=== PATIENT | male | born 1945 | race Caucasian/White ===

== ENCOUNTER 2017-03-10 18:55 | Emergency (ER) | payer MEDICARE, OTHER ==
[~2017-03-10] VITALS: Ht 188 cm; Wt 111.1 kg
[2017-03-10] MEDS ORDERED: GLUCOPHAGE500 MG PO (19:10)
[2017-03-10] MEDS ORDERED: METOPROLOL TART50 MG PO (19:11)
[2017-03-10] MEDS ORDERED: LISINOPRIL-HCT1 EACH PO (19:11)
[2017-03-10] MEDS ORDERED: GLIPIZIDE5 MG PO (19:11)
[2017-03-10] MEDS ORDERED: DOXYCYCLINE HY100 MG PO (20:39)
== END 2017-03-10 20:57 | disposition home or self-care (01) ==
LOC: ED 18:55
DX: S60.222A Contusion of left hand, initial encounter (principal); L08.9 Local infection of the skin and subcutaneous tissue, unspecified; E11.9 Type 2 diabetes mellitus without complications; I10 Essential (primary) hypertension; Z79.84 Long term (current) use of oral hypoglycemic drugs; Z79.899 Other long term (current) drug therapy; W22.8XXA Striking against or struck by other objects, initial encounter
CPT/HCPCS: 73080; 73130; 99283

== ENCOUNTER 2023-01-13 07:06 | Emergency (ER) | payer MEDICARE, OTHER ==
[~2023-01-13] VITALS: Ht 188 cm; Wt 106.1 kg
[~2023-01-13 07:06] MED LIST: DOXYCYCLINE HY100 MG PO; GLIPIZIDE5 MG PO; GLUCOPHAGE500 MG PO; LISINOPRIL-HCT1 EACH PO; METOPROLOL TART50 MG PO
[2023-01-13] MEDS ORDERED: LEVEMIR100 UNIT/1 SUB-Q (07:17)
[2023-01-13 07:38] LABS: BASOPHILS 0.4 % (0-2); HEMATOCRIT 41.7 % (35.0-50.0); HEMOGLOBIN 13.7 g/dL (12.0-18.0); MCHC 32.8 g/dl (30-36); MCV 82.5 fl (81-99); MONOCYTES 5.8 % (0-12); NEUTROPHILS 77.8 % (39-80); PLATELET COUNT 395 K/uL (140-440); RBC 5.05 M/ul (4.3-5.7); RDW 12.9 (10.5-15.0)
[2023-01-13 07:43] LABS: ALBUMIN 3.3 g/dL (3.4-5.0); ALBUMIN/GLOBULIN RATIO 0.65 (1.1-2.4); ANION GAP 13.1 (7-21); BILIRUBIN, TOTAL 0.5 ng/dL (0.2-1.0); BUN/CREATININE RATIO 20.8 (6.0-28.6); CALCIUM 9.6 mg/dL (8.5-10.1); CREATININE, SERUM 1.25 mg/dL (0.70-1.30); POTASSIUM 4.1 mmol/L (3.5-5.1); PROTEIN, TOTAL 8.4 g/dL (6.4-8.2)
[2023-01-13] MEDS ORDERED: ONDANSETRON ODT8 MG PO (08:44)
[2023-01-13] MEDS ORDERED: HYDROCODON-ACE1 EA11 PO (08:44)
[2023-01-13] MEDS ORDERED: FLOMAX0.4 MG PO (08:44)
[2023-01-13 09:31] LABS: BILIRUBIN, URINE NEGATIVE (negative); BLOOD/HGB, URINE MODERATE (Negative); KETONE, URINE TRACE (Negative); LEUK ESTERASE, URINE SMALL (negative); NITRITE, URINE NEGATIVE (negative); PH, URINE 5.5 (5-7)
[2023-01-13 09:45] LABS: EPITHELIAL CELLS, URINE 0 /lpf (0-1+); WHITE BLOOD CELLS, URINE 21-40 /HPF (0-5)
[2023-01-13 09:46] LABS: BACTERIA, URINE 1+ /hpf (negative); CASTS, URINE NONE SEEN \\lpf; COLLECTION TYPE, URINE CLEAN CATCH; CRYSTALS, URINE NONE SEEN (0-1+); REFLEX CULTURE, URINE Yes (No)
[2023-01-13] MEDS ORDERED: CEFDINIR300 MG PO (09:54)
[2023-01-13 10:50] VITALS: BP 160/76
[2023-01-14] MEDS ORDERED: METFORMIN HCL500 MG PO (17:54)
[2023-01-15] MEDS ORDERED: PRILOSEC OTC20 MG PO (08:29)
[2023-01-15] MEDS ORDERED: ADULT LOW DOSE81 MG PO (08:29)
== END 2023-01-13 10:50 | disposition home or self-care (01) ==
LOC: ED 07:06
PROVIDERS: Emergency Medicine
DX: N13.2 Hydronephrosis with renal and ureteral calculous obstruction (principal); N28.89 Other specified disorders of kidney and ureter; I10 Essential (primary) hypertension; E11.9 Type 2 diabetes mellitus without complications; Z79.84 Long term (current) use of oral hypoglycemic drugs; Z79.4 Long term (current) use of insulin
CPT/HCPCS: 36415; 51798; 74177; 80053; 81001; 83690; 85025; 87088; 99284-25; A9270; J0696; J1170; J1885; J2405; J7030; Q9967

== ENCOUNTER 2023-01-20 06:50 | Day surgery (SDC) | payer MEDICARE, OTHER ==
[~2023-01-20] VITALS: Ht 188 cm; Wt 108.0 kg
[~2023-01-20 06:50] MED LIST changes: +ADULT LOW DOSE81 MG PO; +CEFDINIR300 MG PO; +FLOMAX0.4 MG PO; +HYDROCODON-ACE1 EA11 PO; +LEVEMIR100 UNIT/1 SUB-Q; +METFORMIN HCL500 MG PO; +ONDANSETRON ODT8 MG PO; +PRILOSEC OTC20 MG PO
--- NOTE | 2023-01-20 07:15 | NUR ---
PT IN BED. IN CHAIR AT BEDSIDE. BOTH IN GOOD SPIRITS. I EXERCISED MINISTRY OF PRESENCE TALKED OF RECENT EXPERIENCES AND HOPES FOR RELEIF FROM DISCOMFORT. CONSENTED TO PRAYER. PRAYED FOR SUCCESSFUL PROCEDURES AND ONGOING HEALING.
[2023-01-20 07:29] VITALS: BP 164/69
[2023-01-20] MEDS ORDERED: SIMVASTATIN40 MG PO (07:38)
--- NOTE | 2023-01-20 11:30 | NUR ---
PT ARRIVES TO UNIT FROM PACU VIA STRETCHER. REPORT RECIEVED FROM AD RN, FAMILY IS AT BEDSIDE AT THIS TIME. PT IS A&O X4 AND REPORTS PAIN 1/10 AT THIS TIME. SITE HAS SMALL AMOUNT OF OLD SS DRAINAGE, STENT STRING IN PLACE W/TAPE AT THIS TIME, PT VERBALIZES UNDERSTANDING ABOUT IMPORTANCE OF STRING IN PLACE. PT IS SHIVERING AT THIS TIME, BEAR HUGGER IN PLACE, PT STATES THIS IS COMFORTABLE. APPLESAUCE, APPLEJUICE, AND CRACKERS PROVIDED AT THIS TIME, PT TOLERATING WITHOUT DIFFICULTY SWALLOWING. CALL LIGHT WITHIN REACH, NO FURTHER NEEDS AT THIS TIME.
[2023-01-20 11:32] VITALS: BP 175/85
--- NOTE | 2023-01-20 11:41 | NUR ---
01/20/23 1141 Chacha Gan 1055 PT ARRIVED TO PACU, RESP EVEN AND UNLABORED AND PT SHAKING. PT EYES CLOSED AND PT SLIGHTLY REACTIVE TO TACTILE STIMULI. PT UNABLE TO FOLLOW COMMANDS. 1058 PT OPENED HIS EYES AND RN REORIENTING PT TO PACU. PT NODS HEAD "NO" TO PAIN AND NAUSEA. 1100 O2 REMOVED AND RN CONTINUES TO REASSURE PT AND REORIENT HIM. SHAKING CONTINUES. PT DENIES BEING COLD, PT ASKED PRE OP TO REMAIN COLD DUE TO BEING HOT CAUSING NAUSEA. 1102 CBG 86, EDUCATION GIVEN ON CBG. PT REQUESTS WATER AND TAKING SMALL SIPS AT THIS TIME. 1115 PT REQUESTS TO INCREASED HOB, HOB INCREASED. PT REPORTS "BEING LIGHTHEADED" BUT REPORTS IT GETTING BETTER WITH HOB INCREASED. PT REPORTS PAIN 2-3/10 AND TOLERABLE AT THIS TIME. 1130 PT RETURNED TO DS WITH FAMILY AT BEDSIDE, REPORT GIVEN AND ALL QUESTIONS ANSWERED. EDUCATION GIVEN ON STENT IN PLACE AND VOIDING.
--- NOTE | 2023-01-20 12:16 | NUR ---
1210-PATIENT STATES THE URGE TO URINATE. PATIENT STANDING UP USING A BEDSIDE. DENIES BEING DIZZY OR LIGHTHEADED. 1216-PATIETN UNABLE TO URINATE AT THIS TIME. PATIENT BACK TO BED AND TAKING SIPS OF WATER.
[2023-01-20 12:30] VITALS: BP 179/71
--- NOTE | 2023-01-20 12:38 | NUR ---
IN PT ROOM FOR ASSESSMENT AND VS. NO ACUTE CHANGES FROM PREVIOUS ASSESSMENT, STENT THREAD IN PLACE TAPED TO SKIN AT THIS TIME, SM AMOUNT OF SS DRAINAGE. PT REPORTS NO PAIN OR NAUSEA AT THIS TIME AND HAS TOLERATED ALL ORAL INTAKE WITHOUT DIFFICULTY. ICE WATER PROVIDED. PT STATES VERBAL UNDERSTANDING TO REQUIREMENT FOR DISCHARGE OF URINATING. CALL LIGHT WITHIN REACH, FAMILY AT BEDSIDE, NO FURTHER NEEDS AT THIS TIME.
--- NOTE | 2023-01-20 13:11 | NUR ---
IN PT ROOM FOR PT REPORT OF URGE TO VOID. PT TO BATHROOM FOR REPORTED LOOSE BM AND 50 ML OF OUTPUT OF PINK (CLOT FREE) URINE. PT REPORTS PAIN 0.5/10 POST BM/URINE VOID. PT NOW RESTING BACK IN BED, ICE WATER PROVIDED. PT REPORTS NO NAUSEA OR FURTHER NEEDS AT THIS TIME. SITE HAS SMALL AMOUNT OF SS DRAINAGE. CALL LIGHT WITHIN REACH, FAMILY AT BEDSIDE.
[2023-01-20 14:27] VITALS: BP 144/70
--- NOTE | 2023-01-20 14:40 | NUR ---
IN PT ROOM FOR URGE TO VOID AND NEED FOR BM. PT TO BATHROOM, STANDBY ASSIST BY THIS RN. 120 ML RED TINGED/CLEAR OUTPUT. PT STATES LOOSE BM WELL. PT NOW BACK TO ROOM AND REQUESTS THIS RN UPDATE MD TO ENSURE NECESSITY OF VILLATORO CATH AFTER 120 ML URINE VOID. CALLED MD IN OR ROOM AND UPDATED ON PT URINE OUTPUT, MD REQUESTS ADDITIONAL BLADDER SCAN AT THIS TIME. BLADDER SCAN VOLUME OF 837 ML. PT STATES SLIGHT PRESSURE IS FELT AT BLADDER SITE, BUT PAIN IS 3/10 AND TOLERABLE. CALL LIGHT WITHIN REACH, KIRTI PERALTA TO BE UPDATED.
--- NOTE | 2023-01-20 15:00 | NUR ---
KIRTI PERALTA UPDATED OF BLADDER SCAN VOLUME (SEE PREVIOUS NOTE). KIRTI PERALTA VERBAL ORDER FOR 18 FR CATHETER TO STILL BE PLACED. THIS RN AND OLIVIA RN IN ROOM WITH PT, PT , AND PT DAUGHTER EDUCATING ABOUT IMPORTANCE OF CATHETER D/T URINARY OUTPUT, PT STATES VERBAL UNDERSTANDING AT THIS TIME.
--- NOTE | 2023-01-20 15:15 | NUR ---
THIS RN AND OLIVIA BUCKLE ATTACHING MACHINE OPERATOR IN ROOM FOR CATH PLACEMENT AT THIS TIME PER MD ORDER. STERILITY MAINTAINED, UROJET USED FOR PT COMFORT. PT TOLERATED WELL. MODERATE SIZED CLOT IN CATHETER W/IMMEDIATE URINE RETURN, KIRTI PERALTA IN ROOM AT THIS TIME. TOTAL URINE OUTPUT OF 900 ML OF ORANGE/PINK URINE AFTER INSERTION W/MODERATE SIZED CLOT IN BAG. PT STATES PAIN IS 1/10 AND NO NEED FOR PRN PAIN MED AT THIS TIME, PT STATES NO NAUSEA.
[2023-01-20 15:34] VITALS: BP 157/71
--- NOTE | 2023-01-20 15:35 | NUR ---
THIS RN IN ROOM FOR VS AND ASSESSMENT. NO ACUTE CHANGES FROM PREVIOUS ASSESSMENT. STENT REMAINS IN PLACE W/SMALL AMOUNT OF SS DRAINAGE AT THIS TIME. VILLATORO CATH SECURED W/STAT LOCK TO LFT THIGH AND DRAINING ORANGE/CLEAR URINE TO GRAVITY. PT REPORTS TOLERABLE PAIN LEVEL AT THIS TIME AND STATES NO NEED FOR PRN PAIN MED, PT REPORTS NO NAUSEA. THIS RN AND PT ASSISTS PT WITH GETTING DRESSED.
--- NOTE | 2023-01-20 15:45 | NUR ---
PT EXPRESSES NEED TO VOID, TO BATHROOM FOR 75 ML OUTPUT OF YELLOW/ORANGE URINE. PT REPORTS NO FURTHER NEEDS AT THIS TIME, CALL LIGHT WITHIN REACH. PT BLADDER SCAN OF 807 ML AT THIS TIME. MD NOTIFIED OF LOW URINE OUTPUT AND BLADDER SCAN VOLUME, VERBAL ORDERS FOR 18 FR VILLATORO TO STAY IN PLACE FOR 1 DAY POST-OP AND BE REMOVED BY PT/PT FAMILY. THIS RN IN ROOM FOR EDUCATION ON VILLATORO CATHETER, PT AND PT STATE VERBAL UNDERSTANDING.
--- NOTE | 2023-01-20 15:45 | NUR ---
THIS RN IN ROOM FOR DISCHARGE EDUCATION. PT AND STATE VERBAL UNDERSTANDING REGARDING STENT STRING AND CARE OF VILLATORO CATHETER, PT AND PT STATE NO FURTHER QUESTIONS AT THIS TIME. IV DC'ED BY THIS RN, GAUZE/COBAN IN PLACE. PT ESCORTED OFF OF UNIT VIA WC W/VILLATORO REMAINING IN PLACE UPON DISCHARGE. PT STANDBY ASSIST TO PASSENGER SIDE OF 'S VEHICLE. PT AND PT STATE NO FURTHER NEEDS AT THIS TIME.
--- NOTE | 2023-01-20 17:51 | NUR ---
CALLED X3 VIA ALL PHONE #'S IN PT FILE, VM LEFT. SYRINGE NOT GIVEN TO PT AT TIME OF DISCHARGE FOR DC OF PT VILLATORO BAG. WILL FOLLOW-UP TOMORROW AM.
--- NOTE | 2023-01-21 10:49 | OR ---
[facility] [address] [place], [place] [address] Signed DATE OF OPERATION: 01/20/2023 SURGEON: Jennifer Cotto MD PREOPERATIVE DIAGNOSES: 1. Obstructing 10 mm proximal left ureteral calculus. 2. Status post recent cystoscopy with left ureteral stent insertion. POSTOPERATIVE DIAGNOSES: 1. Obstructing 10 mm proximal left ureteral calculus. 2. Status post recent cystoscopy with left ureteral stent insertion. NAMES OF PROCEDURES: 1. Diagnostic cystoscopy with left retrograde pyelogram. 2. Left flexible nephroureteroscopy with laser lithotripsy and basket extraction of stone fragments. 3. Left indwelling ureteral stent exchange. ANESTHESIA: General. ESTIMATED BLOOD LOSS: None. COMPLICATIONS: None. SPECIMENS: Stone fragments stent to the lab for stone analysis. DRAINS: A 6 x variable double-J ureteral stent inserted into the left collecting system. INDICATIONS FOR PROCEDURE: Mr. Jonas is a very pleasant 77-year-old gentleman who presented to me last week with severe left-sided flank pain and renal colic. He had just recently been seen in the emergency department and underwent a CT scan, which revealed an obstructing 6 x 10 mm left proximal ureteral calculus with associated hydronephrosis. A couple of days later, he underwent attempted ureteroscopy. However, I was unable to safely advance the ureteroscope into the left ureter so a ureteral stent was placed at that time. He Electronically Signed By: JENNIFER COTTO MD 01/21/23 1049 PATIENT NAME: JOSE A JONAS OPERATIVE REPORT DATE OF : 45 REPORT #: [id number] PHYSICIAN: JENNIFER COTTO MD PCP: DIANA JACKSON MD REPORT IS CONFIDENTIAL AND NOT TO BE RELEASED WITHOUT AUTHORIZATION [facility] [address] [place] [address] Signed presents today to undergo definitive management in the form of ureteroscopy, laser lithotripsy, and basket extraction of the stone. OPERATIVE FINDINGS: 1. On cystoscopy, there was no evidence of any suspicious masses, lesions, or stones. Bilateral ureteral orifices are in their normal anatomic location. He has an indwelling left ureteral stent coil coming from the left ureteral orifice that does have a visible biofilm. 2. Left retrograde pyelogram revealed no calyceal blunting and no obvious filling defects. The stone is noted to be just still within the left proximal ureter a couple of cm inferior to the UPJ. 3. 10 mm stone was located in the superior aspect of the left UPJ and was fragmented using a holmium laser at 8 and 0.8 settings. The stone was difficult to fragment, so I suspect it is a calcium oxalate monohydrate stone. However, I was able to fragment and extract 100% of the stone from the proximal ureter. A diagnostic left nephroscopy revealed no additional stones within the left collecting system. 4. At the end of procedure, a fresh 6 x variable length double-J ureteral stent was inserted into the left collecting system under direct visualization without difficulty. There was a string left attached to the stent, which the patient will remove on his own in four days. DESCRIPTION OF PROCEDURE: After informed consent was obtained, the patient was taken back to the operating room. He was transferred [facility] to the operating room table, where general anesthesia was induced. He was placed in the dorsal lithotomy position and his genitalia prepped and draped in sterile fashion. Using a 30-degree lens on a 22.5-Tanzanian introducer, rigid cystoscope was inserted through his urethra into his bladder under direct visualization. Panendoscopic views of the bladder were then obtained. The indwelling stent was extracted to the level of the urethral meatus. A 0.035 Sensor wire was inserted through the stent up into the left collecting system. Indwelling stent was removed fully intact. Over the wire, I passed a 12/14 ureteral access sheath into the left collecting system under fluoroscopic guidance. I then injected contrast through the sheath and into the left kidney and a left retrograde pyelogram was performed. Please see above findings. I then passed a flexible ureteroscope through the sheath and into the left proximal ureter. I immediately noticed the large 10 mm stone in the left proximal ureter. The stone was fragmented using a holmium laser at first at 8.8 settings and then I bumped it up to 8 and 1.0 settings. I was able to extract all of the significant stone fragments using a Zero tip basket without difficulty. I then thoroughly evaluated the kidney and the entire length of the left ureter and did not appreciate any other stones in the collecting system. I withdrew the ureteroscope from the collecting system and then passed a 0.035 Sensor wire through the sheath and into the left collecting system. The ureteral access sheath was then removed fully intact. Electronically Signed By: JENNIFER COTTO MD 01/21/23 1049 PATIENT NAME: JOSE A JONAS OPERATIVE REPORT DATE OF : 45 REPORT #: [id number] PHYSICIAN: JENNIFER COTTO MD PCP: DIANA JACKSON MD REPORT IS CONFIDENTIAL AND NOT TO BE RELEASED WITHOUT AUTHORIZATION [address] [address] Signed Over the wire, I passed a 6 x variable length stent into the left collecting system under direct visualization. The stent passed easily and a proximal coil was noted within the left renal pelvis on fluoroscopy. I also appreciated a good coil within the bladder. The stent was left with a string which was secured to the patient's phallus. The procedure was then terminated. The patient tolerated the procedure well without any complication. He will now be transferred to the postanesthesia care unit in stable condition. DISPOSITION: I discussed the details of today's procedure with the patient's and answered all of her questions. She was notified that the 10 mm stone was successfully extracted today. I would like for him to take at least seven more days of Cipro 500 mg p.o. b.i.d., so he was given additional Rx for this today. He says he already has enough oral narcotics to be taken as needed for pain. I have asked the patient to remove his indwelling ureteral stent using the string attached on January 24. He will be scheduled return to see me in approximately two months for a postoperative evaluation and to discuss his stone analysis. MD FORD Cardoso/DINO /[id number] Copies: ~ Electronically Signed By: JENNIFER COTTO MD 01/21/23 1049 PATIENT NAME: JOSE A JONAS OPERATIVE REPORT DATE OF : 45 REPORT #: [id number] PHYSICIAN: JENNIFER COTTO MD PCP: DIANA JACKSON MD REPORT IS CONFIDENTIAL AND NOT TO BE RELEASED WITHOUT AUTHORIZATION
[2023-01-21 14:21] LABS: CALCULI MASS 67 mg (())
== END 2023-01-20 16:00 | disposition home or self-care (01) ==
LOC: DS 06:50 → OPS 06:50 → DS 08:55 → OPS 16:00
PROVIDERS: ATTEND Urology
PROC: 0TC78ZZ Extirpation of Matter from Left Ureter, Via Natural or Artificial Opening Endoscopic (ICD-10-PCS; principal; 2023-01-20 08:55)
PROC: 0T778DZ Dilation of Left Ureter with Intraluminal Device, Via Natural or Artificial Opening Endoscopic (ICD-10-PCS; 2023-01-20 08:55)
DX: N13.2 Hydronephrosis with renal and ureteral calculous obstruction (principal); E11.9 Type 2 diabetes mellitus without complications; Z79.84 Long term (current) use of oral hypoglycemic drugs; Z79.4 Long term (current) use of insulin
CPT/HCPCS: 00910; 74420; 82365; C1769; C2617; J0131; J0690; J2001; J2704; J3490; J7121; Q9967

== ENCOUNTER 2024-12-06 05:42 | Day surgery (SDC) | payer MEDICARE, OTHER ==
[2024-11-26 11:01] VITALS: BP 149/71
[~2024-12-06] VITALS: Ht 188 cm; Wt 106.8 kg
--- NOTE | ~2024-12-06 | OR ---
[facility] [address] [place], [place] [address] Draft DATE OF OPERATION: 12/06/2024 SURGEON: Fiona Monroe MD PREOPERATIVE DIAGNOSIS: Degenerative joint disease right knee, severe. POSTOPERATIVE DIAGNOSIS: Degenerative joint disease right knee, severe. PROCEDURE PERFORMED: Right total knee arthroplasty with Cabrera. VP CARDIOVASCULAR: Sejal Pierre PA-C. Sejal was present and critical for all portions of procedure. ANESTHESIA: Spinal. BLOOD LOSS: 200 mL. TOURNIQUET TIME: Zero. IMPLANTS: Escobar Triathlon size 8 femur, 7 tibia, 10 mm polyethylene, and a 38 mm patella. BRIEF HISTORY: Jose A is a 79-year-old gentleman with pain and severe arthritis in the knee. He had failed nonoperative treatment, wished to proceed with operative. Risks, benefits, and alternatives of surgery were discussed with him and he elected to proceed. DESCRIPTION OF PROCEDURE: Once consent was obtained, he was taken to the operating room. After adequate anesthesia, he was placed on operating room table. Hip bump was placed and the leg was prepped and draped in a standard sterile fashion. The knee was approached through standard anterior midline incision. This was carried through skin and subcutaneous tissue and the mid vastus arthrotomy was performed. The infrapatellar fat pad was PATIENT NAME: JOSE A JONAS OPERATIVE REPORT DATE OF : 45 REPORT #: [id number] PHYSICIAN: FIONA MONROE MD PCP: DIANA JACKSON MD REPORT IS CONFIDENTIAL AND NOT TO BE RELEASED WITHOUT AUTHORIZATION [facility] [address] [place], [place] [address] Draft excised and the MCL was elevated as a sleeve. His patella was quite large and very arthritic. Bone spurs removed off the femur and the patella. I was still unable to mobilize it laterally. We then cut the patella and trimmed more bone spurs. We were then able to mobilize it laterally. The MCL was elevated as a subperiosteal sleeve to the posteromedial corner. The navigation computer arrays were then placed in the distal femur and proximal tibia. The leg was registered with the computer followed by the fine anatomic points of the knee. The four ligamentous poses were undertaken and the prosthesis positioned on the computer was slightly altered. The robot was then brought in and the four straight cuts and two angle cuts were made with care taken to protect the patellar tendon and the MCL. The bony remnants were removed with some difficulty. Posterior osteophytes removed off the femur and posterior release was performed. The trials were then positioned and the knee was taken from 0-120 degrees of flexion. The patella tracked well. The patella was then drilled for a 38 patella and the distal femur was drilled. The proximal tibia was finished using the keel punch followed by the four drill holes. The prosthesis was obtained. The tibia was then impacted into position until it was seated flush. Polyethylene was snapped into position and the femur was impacted. The knee was extended and was then again loaded. The patella was clamped into position until it was seated flush. The knee was taken through range of motion. The patella tracked well. The prosthesis was in good position. The wound was then copiously irrigated with a bottle of Surgiphor followed by normal saline. The periarticular soft tissues were injected with 80 mL of 0.25% Marcaine with epinephrine. The On-Q pain pump was percutaneously placed into the adductor canal from the suprapatellar pouch. The arthrotomy was then closed using the #2 FiberWire followed by #2 Stratafix. Subcutaneous tissue with 0 Stratafix and skin with 3-0. The wound was sealed with LiquiBand and Steri-Strips and dressed with Acticoat-7 dressing, ABDs and Trey wrap. He tolerated the procedure well. All sponge, needle, and instrument counts were correct. Fiona Monroe MD BA/MODL /[id number] Copies: PATIENT NAME: JOSE A JONAS OPERATIVE REPORT DATE OF : 45 REPORT #: [id number] PHYSICIAN: FIONA MONROE MD PCP: DIANA JACKSON MD REPORT IS CONFIDENTIAL AND NOT TO BE RELEASED WITHOUT AUTHORIZATION [facility] [address] [place] [address] Draft ~ PATIENT NAME: JOSE A JONAS OPERATIVE REPORT DATE OF : 45 REPORT #: [id number] PHYSICIAN: FIONA MONROE MD PCP: DIANA JACKSON MD REPORT IS CONFIDENTIAL AND NOT TO BE RELEASED WITHOUT AUTHORIZATION
[~2024-12-06 05:42] MED LIST changes: +CALCIUM500 MG PO; +DAILY VALUE1 EACH PO; +FISH OIL 1,0001 EAC6 PO; +GARLIC100 MG PO; +GLUCOSAMINE CO1 EACH PO; +LACTATED RINGER'S 1,000 ML IV SCH; +LANTUS SOL100 UNIT/1 SUB-Q; +SIMVASTATIN40 MG PO; +TYLENOL EXTRA500 MG PO; +VITAMIN B121000 MCG PO; +VITAMIN E45 M1 PO
[2024-12-06 06:11] VITALS: BP 152/69
[2024-12-06] MEDS ORDERED: Ropivacaine HCl 20 MG/10 ML AMP ONE (06:11)
[2024-12-06 06:26] LABS: BASOPHILS 0.3 % (0.2-1.2); EOSINOPHILS 2.8 % (0.8-7.0); HEMATOCRIT 46.2 % (40.1-51.0); HEMOGLOBIN 15.1 g/dL (13.7-17.5); LYMPHOCYTES 33.4 % (21.8-53.1); MCH 27.4 PG (25.7-32.2); MCHC 32.7 g/dL (32.3-36.5); MCV 83.7 fL (79.0-92.2); MONOCYTES 7.6 % (5.3-12.2); NEUTROPHILS 55.7 % (34.0-67.9); PLATELET COUNT 206 K/uL (163-337); RBC 5.52 M/uL (4.63-6.08)
[2024-12-06] MEDS ORDERED: ondansetron HCL 4 MG/2 ML VIAL ONE (06:43)
[2024-12-06] MEDS ORDERED: MIDAZOLAM HCL 2 MG/2 ML VIAL ONE (06:43)
[2024-12-06] MEDS ORDERED: propofoL 200 MG/20 ML VIAL ONE ×2 (06:43→08:18)
[2024-12-06] MEDS ORDERED: KETOROLAC TROMETHAMINE 30 MG/ML VIAL ONE (06:43)
[2024-12-06] MEDS ORDERED: DEXAMETHASONE SOD PHOS 4 MG/ML VIAL ONE (06:43)
[2024-12-06] MEDS ORDERED: LIDOCAINE HCL 2% 5 ML SDV ONE (06:44)
[2024-12-06] MEDS ORDERED: Ropivacaine HCl 0.5% 30 ML VIAL ONE (06:44)
[2024-12-06] MEDS ORDERED: dexmedeTOMIDine HCl 200 MCG/2 ML VIAL ONE (06:48)
[2024-12-06] MEDS ORDERED: DEXAMETHASONE SOD PHOS 10 MG/ML VIAL ONE (06:50)
[2024-12-06] MEDS ORDERED: ROPIVACAINE IN 0.9% SOD CHL/PF 545 ML ELS.PMP.HR IRRIGATION SCH (07:00)
[2024-12-06] MEDS ORDERED: OXYCODONE HCL 5 MG TAB PO PRN (07:00)
[2024-12-06] MEDS ORDERED: LIDOCAINE HCL 1% 5 ML SDV INJ ONE (07:00)
[2024-12-06] MEDS ORDERED: OXYCODONE HCL 5 MG TAB PO SCH (07:00)
[2024-12-06] MEDS ORDERED: GABAPENTIN 600 MG TAB PO SCH (07:00)
[2024-12-06] MEDS ORDERED: TRANEXAMIC ACID IN NACL,ISO-OS 1,000 MG/100 ML PIGGYBACK IV SCH ×2 (07:00→09:36)
[2024-12-06] MEDS ORDERED: IBLOOD GLUCOSE TEST STRIP 1 EA TEST VI PRN (07:00)
[2024-12-06] MEDS ORDERED: CEFAZOLIN SODIUM 2 GM/20 ML SYR IV SCH ×2 (07:00→15:00)
[2024-12-06] MEDS ORDERED: INTRA-ARTICULAR ANALGESIC INJECTION XX SCH (07:00)
[2024-12-06] MEDS ORDERED: PANTOPRAZOLE SODIUM 40 MG TABEC PO SCH (07:00)
[2024-12-06] MEDS ORDERED: ondansetron HCL 4 MG TAB PO SCH (07:00)
[2024-12-06] MEDS ORDERED: LIDOCAINE HCL 1% 30 ML SDV ONE (07:19)
--- NOTE | 2024-12-06 07:46 | NUR ---
PT NOT AVAILABLE FOR VISIT. PROVIDED PRAYER.
[2024-12-06] MEDS ORDERED: GLYCOPYRROLATE 1 MG/5 ML MDV ONE (07:52)
[2024-12-06] MEDS ORDERED: ePHEDrine sulfate 50 MG/ML AMP ONE (08:03)
[2024-12-06] MEDS ORDERED: CEFUROXIME250 MG PO (08:56)
[2024-12-06] MEDS ORDERED: OXYCODONE HCL5 MG PO (08:57)
[2024-12-06] MEDS ORDERED: GABAPENTIN300 MG PO (08:57)
[2024-12-06] MEDS ORDERED: ASPIRIN325 MG PO (08:57)
[2024-12-06] MEDS ORDERED: SENNA LAX8.6 MG PO (08:57)
[2024-12-06] MEDS ORDERED: ASPIRIN 325 MG TAB PO SCH (09:00)
--- NOTE | 2024-12-06 09:32 | NUR ---
12/06/24 0932 Bobbi Markham 0906-PT ARRIVES TO PACU, VIA STRETCHER, RESTING SEMI FOWLERS, PT A+OX4 DENIES PAIN OR NAUSEA, VSS ON RA. CRYO CUFF APPLIED TO RT KNEE. 0915-PT SITTING UP IN BED, SIPPING ON WATER, DENIES PAIN OR NAUSEA, VS REMAIN STABLE.
[2024-12-06] MEDS ORDERED: fentaNYL citrate 50 MCG/ML SDV IV PRN (09:45)
[2024-12-06] MEDS ORDERED: NALOXONE HCL 0.4 MG SYR IV PRN (09:45)
[2024-12-06] MEDS ORDERED: ondansetron HCL 4 MG/2 ML VIAL IV PRN (09:45)
[2024-12-06 09:47] VITALS: BP 137/61
--- NOTE | 2024-12-06 10:09 | NUR ---
0945-PT BACK TO ROOM FROM PACU ON RA. RECEIVED REPORT FROM JOSE COBURN. PT IS AWAKE. RESP EVEN AND UNLABORED. DENIES PAIN AND NAUSEA. CRYO CUFF IN PLACE AND RUNNING. ON-Q PUMP SET AT 4. PT DRINKING WATER AND EATING APPLESAUCE. FAMILY AT BEDSIDE. NO OTHER NEEDS AT THIS TIME. CALL LIGHT WITHIN REACH.
[2024-12-06 10:58] VITALS: BP 138/58
--- NOTE | 2024-12-06 11:05 | NUR ---
1058-PT IS LAYING IN BED WITH EYES CLOSED. PT OPENS EYES WITH VERBAL STIMULI. RESP EVEN AND UNLABORED. RATES PAIN 1/10. DENIES PAIN. CRYO CUFF IN PLACE AND RUNNING. ON-Q PUMP SET AT 4. FAMILY AT BEDSIDE. NO OTHER NEEDS AT THIS TIME. CALL LIGHT WITHIN REACH.
[2024-12-06 12:00] VITALS: BP 135/64
--- NOTE | 2024-12-06 12:05 | NUR ---
PT LAYING IN BED WITH EYES CLOSED. PT OPENS EYES WITH TACTILE STIMULI. RESP EVEN AND UNLABORED. RATES PAIN 1/10. DENIES NAUSEA. RESP EVEN AND UNLABORED. CRYO CUFF IN PLACE AND RUNNING. ON-Q PUMP SET AT 4. LUNCH ORDERED. NO OTHER NEEDS AT THIS TIME. FAMILY AT BEDSIDE. CALL LIGHT WITHIN REACH.
[2024-12-06 13:13] VITALS: BP 151/68
--- NOTE | 2024-12-06 13:37 | NUR ---
1310-PT USED URINAL AT BEDSIDE. PT ABLE TO VOID 300ML. 1313-PT SITTING UP IN BED. RESP EVEN AND UNLABORED. RATES PAIN 06/18. DENIES NASUEA. CRYO CUFF IN PLACE AND RUNNING. ON-Q PUMP SET AT 4. 1315-PT MOVES SELF TO SIT AT BEDSIDE. CALL LIGHT WITHIN REACH.
--- NOTE | 2024-12-06 14:33 | NUR ---
1405-PHYSICAL THERAPY IN WITH PT. 1433-PT BACK TO ROOM FROM PHYSICAL THERAPY.
[2024-12-06 14:51] VITALS: BP 140/69
[2024-12-06] MEDS ORDERED: ACETAMINOPHEN 500 MG TAB PO SCH (15:00)
[2024-12-06] MEDS ORDERED: GABAPENTIN 300 MG CAP PO SCH (15:00)
--- NOTE | 2024-12-06 16:53 | NUR ---
1450-PT GOT DRESSED WITH THE HELP OF HIS . DECLINES RN'S HELP. 1503-WENT OVER DISCHARGE INSTRUCTIONS WITH PT AND . WENT OVER ALL POSTOP MEDICATIONS. ALL QUESTIONS ANSWERED. 1505-PT AMBULATES WITH WALKER TO RESTROOM. 1510-WHEELCHAIR RIDE PROVIDED TO FRONT OF HOSPITAL WHERE AND DAUGHTER WERE WAITING WITH THE CAR.
[2024-12-06] MEDS ORDERED: SENNOSIDES 1 TAB PO SCH (21:00)
[2024-12-07] MEDS ORDERED: cefuroxime axetiL 250 MG TAB PO SCH (09:00)
== END 2024-12-06 15:10 | disposition home or self-care (01) ==
LOC: DS 05:42
PROVIDERS: Nurse Anesthetist, Certified Registered; ATTEND Specialist
PROC: 0SRC06Z Replacement of Right Knee Joint with Oxidized Zirconium on Polyethylene Synthetic Substitute, Open Approach (ICD-10-PCS; principal; 2024-12-06 07:00)
DX: M17.11 Unilateral primary osteoarthritis, right knee (principal); E11.9 Type 2 diabetes mellitus without complications; E78.00 Pure hypercholesterolemia, unspecified; I10 Essential (primary) hypertension; Z79.4 Long term (current) use of insulin; Z79.84 Long term (current) use of oral hypoglycemic drugs; Z79.899 Other long term (current) drug therapy
CPT/HCPCS: 01402; 36415; 64447; 64450; 73560; 76942; 85025; A9270; C1713; C1776; J0690; J1100; J1885; J2003; J2250; J2405; J2704; J2795; J7121; J7999

== ENCOUNTER 2024-12-11 19:49 | Emergency (ER) | payer MEDICARE, OTHER ==
[~2024-12-11] VITALS: Ht 188 cm; Wt 110.1 kg
[~2024-12-11 19:49] MED LIST changes: +ASPIRIN325 MG PO; +CEFUROXIME250 MG PO; +GABAPENTIN300 MG PO; -LACTATED RINGER'S 1,000 ML IV SCH; +OXYCODONE HCL5 MG PO; +SENNA LAX8.6 MG PO
[2024-12-11] MEDS ORDERED: ROSUVASTATIN CA40 MG NG (20:06)
[2024-12-11 20:49] LABS: BASOPHILS 0.3 % (0.2-1.2); EOSINOPHILS 2.1 % (0.8-7.0); LYMPHOCYTES 19.4 % (21.8-53.1); MCH 27.9 PG (25.7-32.2); MCHC 33.2 g/dL (32.3-36.5); MCV 84.0 fL (79.0-92.2); MONOCYTES 10.2 % (5.3-12.2); NEUTROPHILS 67.6 % (34.0-67.9); RBC 4.01 M/uL (4.63-6.08)
[2024-12-11 21:01] LABS: ALT (SGPT) 27.0 U/L (14-59); AST (SGOT) 17.0 U/L (15-37); GLOMERULAR FILTRATION RATE,EST 53.0 mL/min (>60); PROTEIN, TOTAL 6.5 g/dL (6.4-8.2); UREA NITROGEN 28.0 mg/dL (7-18)
[2024-12-11 23:09] VITALS: BP 146/65
== END 2024-12-11 23:10 | disposition home or self-care (01) ==
LOC: ED 19:49
PROVIDERS: Internal Medicine
DX: G89.18 Other acute postprocedural pain (principal); I10 Essential (primary) hypertension; E11.9 Type 2 diabetes mellitus without complications; Z79.4 Long term (current) use of insulin; Z79.899 Other long term (current) drug therapy
CPT/HCPCS: 36415; 80053; 85025; 93971; 99284-25